=== PATIENT | female | born 1995 | race Caucasian/White ===

== ENCOUNTER 2020-12-12 01:54 | Inpatient (IN) ==
[2020-12-12] MEDS ORDERED: BUTORPHANOL 2 MG/ML VIAL IV PRN (02:22)
[2020-12-12] MEDS ORDERED: MEPERIDINE 50 MG/1 ML VIAL IM PRN (02:22)
[2020-12-12] MEDS: LACTATED RINGERS 1,000 ML IV SCH ×2 (02:31→05:07)
[2020-12-12 02:42] LABS: Basophils % 0.2 % (0.0-0.8); Eosinophils # 0.1 10*3/uL (0.0-0.87); Eosinophils % 0.6 % (0.00-10.9); Hematocrit 42.8 VOL% (35.7-47.0); Hemoglobin 14.8 GM/DL (12.0-16.0); Immature Granulocytes % 0.3 %; Immature Granulocytes Absolute 0.04 #; Lymphocytes # 2.4 10*3/uL (1.4-4.0); Lymphocytes % 18.9 % (21.3-54.2); Mean Corpuscular HGB Conc 34.6 GM/DL (32-36); Mean Corpuscular Volume 84.8 FL (87-102); Mean Platelet Volume 9.7 FL (9.6-12.0); Monocytes % 5.9 % (1.7-12.7); Neutrophils % 74.1 % (38.7-73.9); Platelet Count 228 T/CUMM (130-400); Red Blood Count 5.05 MC/CUMM (3.8-5.5); Red Cell Distribution Width 12.3 % (9.3-17.3); White Blood Count 12.7 T/CUMM (4-12)
[2020-12-12 03:07] LABS: Albumin 3.4 G/DL (3.4-5.0); Bilirubin,Total 0.5 MG/DL (0.2-1.0); Calcium 9.2 MG/DL (8.5-10.1); Osmolality,Calculated 271.8 MOS/KG (273-304); Potassium 3.8 MMOL/L (3.5-5.1); Total Protein 7.2 G/DL (6.4-8.2)
[2020-12-12] MEDS: ONDANSETRON 4 MG/2 ML VIAL IV PRN ×3 (04:58→17:01)
[2020-12-12] MEDS ORDERED: CITRIC ACID/SODIUM CITRATE 30 ML UDCUP PO ONE (07:34)
[2020-12-12] MEDS ORDERED: FAMOTIDINE 20 MG/2 ML VIAL IV ONE (07:34)
[2020-12-12] MEDS ORDERED: LACTATED RINGERS 1,000 ML IV ONE (07:34)
[2020-12-12] MEDS ORDERED: ePHEDrine 50 MG/ML VIAL IV PRN (07:35)
[2020-12-12] MEDS ORDERED: NALOXONE 0.4 MG/ML VIAL IV PRN (07:35)
[2020-12-12] MEDS ORDERED: hydrOXYzine HCL 25 MG/1 ML VIAL IM PRN (07:35)
[2020-12-12] MEDS ORDERED: diphenhydrAMINE 50 MG/1 ML VIAL IV PRN ×2 (07:35)
[2020-12-12] MEDS ORDERED: ONDANSETRON 4 MG/2 ML VIAL IV ONE (07:35)
[2020-12-12] MEDS ORDERED: PROMETHAZINE 25 MG/1 ML VIAL IM ONE (07:35)
[2020-12-12] MEDS ORDERED: fentaNYL 2 MCG/ROPIV 0.2% EPID 100 ML EPIDURAL SCH (08:00)
[2020-12-12] MEDS ORDERED: AMPICILLIN INJ 2,000 MG in SODIUM CHLORIDE 0.9% 100 ML IV ONE (08:32)
[2020-12-12] MEDS ORDERED: OXYTOCIN/LR 20 UNIT/1,000 ML BAG IV SCH (09:00)
[2020-12-12 12:49] LABS: Bilirubin,Urine Negative (Negative); Blood, Urine Negative (Negative); Glucose,Urine (UA) 50 mg/dL (Negative); Ketones,Urine Negative (Negative); Nitrite,Urine Negative (Negative); Protein,Urine Negative; RBC,Urine <1 /HPF (0-4); Urine Appearance CLEAR (Clear); Urine Color Yellow (Yellow); Urine Specific Gravity 1.008 (1.001-1.035); Urine Urobilinogen < 2.0 EU/DL (0.2-1.0)
[2020-12-12] MEDS: AMPICILLIN INJ 1,000 MG in SODIUM CHLORIDE 0.9% 100 ML IV SCH ×2 (13:03→16:41)
[2020-12-12] MEDS ORDERED: miSOPROStoL 200 MCG TABLET ONE (17:28)
[2020-12-12] MEDS ORDERED: TRANEXAMIC ACID 1,000 MG/10 ML VIAL ONE (17:28)
[2020-12-12] MEDS ORDERED: CARBOPROST TROMETHAMINE 250 MCG/ML AMP IM ONE ×2 (17:29→18:14)
[2020-12-12] MEDS ORDERED: METHYLERGONOVINE 0.2 MG/1 ML AMP ONE (17:29)
[2020-12-12] MEDS ORDERED: LIDOCAINE 1% 50 ML VIAL ONE (17:29)
[2020-12-12] MEDS ORDERED: SODIUM CHLORIDE 0.9% 0 ML IV ONE (17:30)
[2020-12-12 18:20] LABS: Cord Venous Blood HCO3 23.5 MMOL/L; Cord Venous Blood PCO2 42.4 MMHG; Cord Venous Blood PO2 34.2
[2020-12-12] MEDS ORDERED: IBUPROFEN 800 MG TABLET PO PRN (21:51)
[2020-12-12] MEDS: DOCUSATE SODIUM 100 MG CAPSULE PO SCH (22:02)
[2020-12-13 06:27] LABS: Basophils % 0.2 % (0.0-0.8); Eosinophils # 0.1 10*3/uL (0.0-0.87); Eosinophils % 0.6 % (0.00-10.9); Hematocrit 33.6 VOL% (35.7-47.0); Immature Granulocytes % 0.6 %; Immature Granulocytes Absolute 0.07 #; Lymphocytes # 1.8 10*3/uL (1.4-4.0); Mean Corpuscular HGB Conc 33.9 GM/DL (32-36); Mean Corpuscular Volume 86.6 FL (87-102); Mean Platelet Volume 9.9 FL (9.6-12.0); Neutrophils % 77.6 % (38.7-73.9); Platelet Count 186 T/CUMM (130-400); Red Cell Distribution Width 12.3 % (9.3-17.3); White Blood Count 12.6 T/CUMM (4-12)
[2020-12-13 06:29] LABS: Hemoglobin 11.4 GM/DL (12.0-16.0); Red Blood Count 3.88 MC/CUMM (3.8-5.5)
[2020-12-13] MEDS: DOCUSATE SODIUM 100 MG CAPSULE PO SCH ×2 (07:22→20:39)
[2020-12-13] MEDS ORDERED: BENZOCAINE 20%/MENTHOL 0.5% SPRAY 56 GM CAN TOP PRN (08:21)
[2020-12-13] MEDS ORDERED: WITCH HAZEL PADS 100/JAR TOP PRN (08:22)
[2020-12-13] MEDS ORDERED: HYDROCORTISONE 2.5% RECTAL CREAM 30 GM TUBE TOP PRN (08:23)
[2020-12-13] MEDS ORDERED: ACETAMINOPHEN/CODEINE 300-30 MG TABLET ONE (11:13)
[2020-12-13] MEDS: ACETAMINOPHEN/CODEINE 300-30 MG TABLET PO PRN ×2 (11:15→21:07)
[2020-12-14 08:13] VITALS: BP 109/64
[2020-12-14] MEDS: DOCUSATE SODIUM 100 MG CAPSULE PO SCH (08:53)
[2020-12-14] MEDS: LACTATED RINGERS 1,000 ML IV SCH ×2 (13:37→13:38)
[2020-12-14] MEDS ORDERED: MEASLES/MUMPS/RUBELLA VACCINE 0.5 ML VIAL SUBCUT ONE (16:20)
== END 2020-12-14 17:15 | disposition home or self-care (01) | DRG 807 ==
LOC: N.LD → OBSVTOIN 01:54 → N.OB 21:17
PROVIDERS: ADMIT Obstetrics & Gynecology; ATTEND Obstetrics & Gynecology

== ENCOUNTER 2022-05-17 00:01 | Inpatient (IN) ==
[2022-05-17] MEDS ORDERED: BUTORPHANOL 2 MG/ML VIAL IV PRN (00:12)
[2022-05-17] MEDS ORDERED: CARBOPROST TROMETHAMINE 250 MCG/ML AMP IM PRN (00:12)
[2022-05-17] MEDS ORDERED: METHYLERGONOVINE 0.2 MG/1 ML AMP IM PRN (00:12)
[2022-05-17] MEDS ORDERED: ACETAMINOPHEN 325 MG TABLET PO PRN ×2 (00:12→13:25)
[2022-05-17] MEDS ORDERED: OXYTOCIN/LR 20 UNIT/1,000 ML BAG IV ONE ×2 (00:12→13:25)
[2022-05-17] MEDS ORDERED: TRANEXAMIC ACID 1,000 MG in SODIUM CHLORIDE 0.9% 100 ML IV PRN (00:12)
[2022-05-17] MEDS ORDERED: miSOPROStoL 200 MCG TABLET RECTAL PRN (00:12)
[2022-05-17] MEDS ORDERED: ONDANSETRON 4 MG/2 ML VIAL IV PRN ×2 (00:12→13:25)
[2022-05-17] MEDS ORDERED: MEPERIDINE 25 MG/1 ML VIAL IV PRN (00:20)
[2022-05-17 01:17] LABS: Albumin 2.8 G/DL (3.4-5.0); Bilirubin,Total 0.5 MG/DL (0.20-1.00); Calcium 8.6 MG/DL (8.5-10.1); Osmolality,Calculated 278.3 MOS/KG (273-304); Potassium 3.3 MMOL/L (3.5-5.1); Total Protein 6.2 G/DL (6.4-8.2)
[2022-05-17] MEDS: LACTATED RINGERS 1,000 ML IV SCH ×2 (01:18→09:07)
[2022-05-17] MEDS: OXYTOCIN/LR 20 UNIT/1,000 ML BAG IV SCH ×2 (01:20→12:59)
[2022-05-17 01:53] LABS: Basophils % 0.1 % (0.0-0.8); Eosinophils # 0.1 10*3/uL (0.0-0.87); Eosinophils % 0.6 % (0.00-10.9); Hematocrit 36.3 VOL% (35.7-47.0); Hemoglobin 12.9 GM/DL (12.0-16.0); Immature Granulocytes % 0.4 %; Immature Granulocytes Absolute 0.03 #; Lymphocytes # 2.2 10*3/uL (1.4-4.0); Lymphocytes % 26.6 % (21.3-54.2); Mean Corpuscular HGB Conc 35.5 GM/DL (32-36); Mean Corpuscular Volume 84.4 FL (87-102); Mean Platelet Volume 10.1 FL (9.6-12.0); Monocytes # 0.5 10*3/uL (0.11-0.8); Monocytes % 5.6 % (1.7-12.7); Neutrophils % 66.7 % (38.7-73.9); Platelet Count 216 T/CUMM (130-400); Red Cell Distribution Width 12.5 % (9.3-17.3); White Blood Count 8.4 T/CUMM (4-12)
[2022-05-17 02:56] LABS: HIV Antigen/Antibody Result Nonreactive (Nonreactive); Rubella Antibody IgG Result Reactive (NonReactive)
[2022-05-17] MEDS ORDERED: FAMOTIDINE 20 MG/2 ML VIAL IV ONE (08:13)
[2022-05-17] MEDS ORDERED: ePHEDrine 50 MG/ML VIAL IV PRN (08:13)
[2022-05-17] MEDS ORDERED: CITRIC ACID/SODIUM CITRATE 30 ML UDCUP PO ONE (08:13)
[2022-05-17] MEDS ORDERED: LACTATED RINGERS 1,000 ML IV ONE (08:13)
[2022-05-17] MEDS ORDERED: NALOXONE 0.4 MG/ML VIAL IV PRN (08:13)
[2022-05-17] MEDS ORDERED: diphenhydrAMINE 50 MG/1 ML VIAL IV PRN (08:13)
[2022-05-17] MEDS ORDERED: fentaNYL 2 MCG/ROPIV 0.2% EPID 100 ML EPIDURAL SCH (08:30)
[2022-05-17 10:15] LABS: RBC,Urine <1 /HPF (0-4); Squamous Epithelial Cell,Urine Occasional /HPF (0-10)
[2022-05-17 10:16] LABS: Bilirubin,Urine Negative (Negative); Blood, Urine Negative (Negative); Glucose,Urine (UA) Negative (Negative); Ketones,Urine Trace mg/dL (Negative); Nitrite,Urine Negative (Negative); Protein,Urine Negative (Negative); Urine Appearance Clear (Clear); Urine Color Yellow (Yellow); Urine Specific Gravity 1.015 (1.001-1.035)
[2022-05-17 10:17] LABS: Urine Urobilinogen 0.2 eU/dL (<2.0)
[2022-05-17 12:28] LABS: Cord Venous Blood HCO3 21.6 MMOL/L; Cord Venous Blood PCO2 41.6 MMHG
[2022-05-17] MEDS ORDERED: IBUPROFEN 800 MG TABLET PO PRN (13:25)
[2022-05-17] MEDS ORDERED: LANOLIN 50% CREAM 0.3 OZ TUBE TOP PRN (13:25)
[2022-05-17] MEDS ORDERED: WITCH HAZEL PADS 100/JAR TOP PRN (13:25)
[2022-05-17] MEDS ORDERED: BISACODYL 10 MG SUPP RECTAL PRN (13:25)
[2022-05-17] MEDS ORDERED: DIPH/TET/ACEL PERT BOOSTER VACCINE 0.5 ML VIAL IM ONE (13:25)
[2022-05-17] MEDS ORDERED: RHO(D) IMMUNE GLOBULIN 300 MCG SYRINGE IM ONE (13:25)
[2022-05-17] MEDS ORDERED: oxyCODONE/ACETAMINOPHEN 5-325 MG TABLET PO PRN (13:25)
[2022-05-17] MEDS ORDERED: HYDROCORTISONE 2.5% RECTAL CREAM 30 GM TUBE TOP PRN (13:25)
[2022-05-17] MEDS ORDERED: BENZOCAINE 20%/MENTHOL 0.5% SPRAY 56 GM CAN TOP PRN (13:25)
[2022-05-17] MEDS ORDERED: MEASLES/MUMPS/RUBELLA VACCINE 0.5 ML VIAL SUBCUT ONE (13:25)
[2022-05-17] MEDS: POTASSIUM CHLORIDE 20 MEQ TABLET PO PRN ×2 (17:00→18:37)
[2022-05-17] MEDS: oxyCODONE/ACETAMINOPHEN 5-325 MG TABLET PO PRN (20:19)
[2022-05-17] MEDS: DOCUSATE SODIUM 100 MG CAPSULE PO SCH (20:20)
[2022-05-18] MEDS: POTASSIUM CHLORIDE 20 MEQ TABLET PO PRN (00:49)
[2022-05-18 06:22] LABS: Basophils % 0.1 % (0.0-0.8); Eosinophils # 0.1 10*3/uL (0.0-0.87); Eosinophils % 1.2 % (0.00-10.9); Hematocrit 28.5 VOL% (35.7-47.0); Immature Granulocytes % 0.4 %; Immature Granulocytes Absolute 0.04 #; Lymphocytes # 2.6 10*3/uL (1.4-4.0); Lymphocytes % 25.4 % (21.3-54.2); Mean Corpuscular HGB Conc 35.1 GM/DL (32-36); Mean Corpuscular Volume 85.3 FL (87-102); Mean Platelet Volume 9.7 FL (9.6-12.0); Monocytes # 0.5 10*3/uL (0.11-0.8); Neutrophils % 67.9 % (38.7-73.9); Platelet Count 192 T/CUMM (130-400); Red Blood Count 3.34 MC/CUMM (3.8-5.5); Red Cell Distribution Width 12.8 % (9.3-17.3); White Blood Count 10.3 T/CUMM (4-12)
[2022-05-18] MEDS: DOCUSATE SODIUM 100 MG CAPSULE PO SCH ×3 (08:49→21:00)
[2022-05-18] MEDS: MULTIVITAMIN (PRENATAL) TABLET PO SCH (08:50)
[2022-05-18] MEDS: oxyCODONE/ACETAMINOPHEN 5-325 MG TABLET PO PRN ×2 (08:51→19:31)
[2022-05-18] MEDS ORDERED: MAGNESIUM HYDROXIDE SUSP 30 ML UDCUP PO PRN (14:34)
[2022-05-19 07:58] VITALS: BP 119/59
[2022-05-19] MEDS: DOCUSATE SODIUM 100 MG CAPSULE PO SCH (09:01)
[2022-05-19] MEDS: MULTIVITAMIN (PRENATAL) TABLET PO SCH (09:01)
== END 2022-05-19 12:45 | disposition home or self-care (01) | DRG 806 ==
LOC: N.LDOUT 00:01 → N.LD 00:03 → N.OB 14:44
PROVIDERS: ADMIT Obstetrics & Gynecology; ATTEND Obstetrics & Gynecology